=== PATIENT | male | born 1965 | race Caucasian/White ===

== ENCOUNTER 2016-05-21 12:25 | Emergency (ER) | payer OTHER ==
[~2016-05-21] VITALS: Ht 165.1 cm; Wt 66.9 kg
[2016-05-21 12:29] VITALS: TEMP 36.5; Ht 165.1 cm; Wt 66.9 kg
[2016-05-21] MEDS ORDERED: MoRPHine SULFATE 10 MG/ML CARP/VIAL IV STA (12:53)
[2016-05-21] MEDS ORDERED: ONDANSETRON INJ 2 MG/ML 2 ML VIAL ONE (13:28)
[2016-05-21] MEDS ORDERED: XYLOCAINE 1%/SOD BICARB 20 ML VIAL INFIL ONE (13:31)
--- NOTE | 2016-05-21 13:31 | DIAGNOSTIC IMAGING REPORT ---
LEFT HAND 3 VIEWS HISTORY: LACERATION LEFT HAND COMPARISON: None. FINDINGS: Comminuted, slightly angulated fracture at the midshaft of the proximal phalanx of the thumb. There is also an oblique nondisplaced fracture at the ulnar base of the distal phalanx of the thumb. Comminuted fracture at the mid to distal middle phalanx of the index finger with amputation of the distal phalanx. Comminuted fractures at the distal phalanx of the middle finger with associated soft tissue laceration. Multiple punctate densities within the soft tissues of the index finger and middle finger may be due to tiny bony fragments. IMPRESSION: Fractures within the left thumb, index finger, and middle finger as described above including amputation of the distal phalanx of the left index finger. Electronically signed by: Rosalio Elizabeth M.D. 05/21/2016 1:29 PM Dictated Date/Time: 05/21/2016 1:27 PM
[2016-05-21] MEDS ORDERED: IBUP-1050 PO (13:41)
[2016-05-21] MEDS ORDERED: CEFAZOLIN 2000 MG/60 ML D5W IV SCH (14:30)
[2016-05-21 14:39] LABS: BASO % 0.3 %; BASO ABS # 0.02 K/uL (0-0.2); COMPLETE YES; EOS % 2.9 %; IG% 0.1 %; LYMPH % 32.5 %; LYMPH ABS # 2.34 K/uL (1.2-3.4); MEAN CELL VOLUME 85.1 fL (80-100); MEAN CORPUSCULAR HEMOGLOBIN 29.7 pg (25-34); MEAN CORPUSCULAR HGB CONC 34.9 g/dl (32-36); MEAN PLATELET VOLUME 10.4 fL (7.4-10.4); MONO % 4.7 %; NEUT % 59.5 %; PLATELET COUNT 308 K/uL (130-400); RED BLOOD COUNT 5.05 M/uL (4.7-6.1); WHITE BLOOD COUNT 7.21 K/uL (4.8-10.8)
[2016-05-21 14:49] LABS: BUN/CREATININE RATIO 20.4 (10-20); CALCIUM 8.6 mg/dl (8.5-10.1); CREATININE 1.2 mg/dl (0.60-1.40); POTASSIUM 3.4 mmol/L (3.5-5.1)
[2016-05-21] MEDS ORDERED: MoRPHine SULFATE 4 MG/ML 1 ML CARP\\VIAL ONE (15:31)
[2016-05-21] MEDS ORDERED: CEPH500C PO (16:38)
[2016-05-21] MEDS ORDERED: TRAM-10 PO (16:38)
--- NOTE | 2016-05-21 16:47 | EMERGENCY ROOM VISIT NOTE ---
History Report prepared by Shannanibbisi: Gurpreet Deutsch Under the Supervision of: Dr. Get Serrano D.O. First contact with patient: 12:41 Chief Complaint: LACERATION/CUT (SUT/DERMABOND) Stated Complaint: LACERATION-POSSIBLE AVULSION History of Present Illness The patient is a 50 year old male who presents to the Emergency Room with complaints of persistent finger pain that started about 25 minutes ago. The patient was working around his house when he slipped in mud and cut his hand on his saw when his safety board slipped. The patient also complains of thumb pain and a headache. He has old stitches in his left thumb that were supposed to be taken out last week. He denies hitting his head. Pt denies change in vision, fevers, chest pain, shortness of breath, diarrhea, pain with urination, and melena. Source of History: patient Onset: 25 minutes ago Position: finger(s) (left) Timing: other (persistent) Associated Symptoms: + headache, No SOB, No chest pain, No diarrhea, No fevers, No melena, No urinary symptoms Note: Other associated symptoms: left thumb pain Denies: vision changes Review of Systems See HPI for pertinent positives & negatives. A total of 10 systems reviewed and were otherwise negative. Past Medical & Surgical Medical Problems: (1) No pertinent past medical history Family History No pertinent family history Social History Smoking Status: Current Every Day Smoker Housing Status: lives alone Occupation Status: unemployed Current/Historical Medications Scheduled Cephalexin Monohydrate (Keflex), 500 MG PO TID Tramadol (Ultram), 1 TABS PO Q6H Scheduled PRN Ibuprofen (Advil), 200-400 MG PO Q6H PRN for Pain Allergies Coded Allergies: Acetaminophen (Unverified Allergy, Intermediate, NAUSEA AND DIZZY, 05/21/16 ) Hydrocodone (Unverified Allergy, Intermediate, NAUSEA AND DIZZINESS, ) Oxycodone (Unverified Allergy, Intermediate, NAUSEA AND DIZZY, 05/21/16) Physical Exam Vital Signs Date Time Temp Pulse Resp B/P Pulse Ox O2 Delivery O2 Flow Rate FiO2 05/21/16 16:52 99 20 153/109 96 Room Air 05/21/16 16:35 110 05/21/16 15:31 109 20 173/108 95 Room Air 05/21/16 13:59 81 21 147/97 92 4/10/17 13:05 106 14 176/98 92 Room Air 05/21/16 12:29 36.5 110 20 155/87 97 Room Air Physical Exam GENERAL: moderate distress, holding left hand. EYE EXAM: normal conjunctiva OROPHARYNX: no exudate, no erythema, lips, buccal mucosa, and tongue normal and mucous membranes are moist LUNGS: Clear to auscultation. Normal chest wall mechanics HEART: no murmurs, S1 normal and S2 normal CHEST: old midline incision ABDOMEN: abdomen soft, non-tender, normo-active bowel sounds, no masses, no rebound or guarding. BACK: Back is symmetrical on inspection and there is no deformity, no midline tenderness, no CVA tenderness. SKIN: no rashes and no bruising UPPER EXTREMITIES: 3 sutures intact to palmar aspect of left thumb, significant pain with palpation of MTP through DIP, no obvious bruising. 2nd digit of left hand - exposed bone amputated in-between DIP and PIP. Stellate laceration tracking back over PIP. 3rd digit - laceration on palmar aspect medially and laterally 3cm in total, no venous oozing, flexor digitorum profundus and flexor digitorum superficialis intact. Stellate laceration. LOWER EXTREMITIES: No pitting edema. NEURO EXAM: Normal sensorium, Medical Decision & Procedures ER Provider Diagnostic Interpretation: Radiology results as stated below per my review and the radiologist's interpretation: LEFT HAND 3 VIEWS HISTORY: LACERATION LEFT HAND COMPARISON: None. FINDINGS: Comminuted, slightly angulated fracture at the midshaft of the proximal phalanx of the thumb. There is also an oblique nondisplaced fracture at the ulnar base of the distal phalanx of the thumb. Comminuted fracture at the mid to distal middle phalanx of the index finger with amputation of the distal phalanx. Comminuted fractures at the distal phalanx of the middle finger with associated soft tissue laceration. Multiple punctate densities within the soft tissues of the index finger and middle finger may be due to tiny bony fragments. IMPRESSION: Fractures within the left thumb, index finger, and middle finger as described above including amputation of the distal phalanx of the left index finger. Electronically signed by: Rosalio Elizabeth M.D. 05/21/2016 1:29 PM Dictated Date/Time: 05/21/2016 1:27 PM Laboratory Results 4/10/17 12:40 Red Blood Count 5.05, Mean Corpuscular Volume 85.1, Mean Corpuscular Hemoglobin 29.7, Mean Corpuscular Hemoglobin Concent 34.9, Mean Platelet Volume 10.4, Neutrophils (%) (Auto) 59.5, Lymphocytes (%) (Auto) 32.5, Monocytes (%) (Auto) 4.7, Eosinophils (%) (Auto) 2.9, Basophils (%) (Auto) 0.3, Neutrophils # (Auto) 4.29, Lymphocytes # (Auto) 2.34, Monocytes # (Auto) 0.34, Eosinophils # (Auto) 0.21, Basophils # (Auto) 0.02 05/21/16 12:40 Test 05/21/16 12:40 White Blood Count 7.21 K/uL (4.8-10.8) Red Blood Count 5.05 M/uL (4.7-6.1) Hemoglobin 15.0 g/dL (14.0-18.0) Hematocrit 43.0 % (42-52) Mean Corpuscular Volume 85.1 fL (80-100) Mean Corpuscular Hemoglobin 29.7 pg (25-34) Mean Corpuscular Hemoglobin Concent 34.9 g/dl (32-36) Platelet Count 308 K/uL (130-400) Mean Platelet Volume 10.4 fL (7.4-10.4) Neutrophils (%) (Auto) 59.5 % Lymphocytes (%) (Auto) 32.5 % Monocytes (%) (Auto) 4.7 % Eosinophils (%) (Auto) 2.9 % Basophils (%) (Auto) 0.3 % Neutrophils # (Auto) 4.29 K/uL (1.4-6.5) Lymphocytes # (Auto) 2.34 K/uL (1.2-3.4) Monocytes # (Auto) 0.34 K/uL (0.11-0.59) Eosinophils # (Auto) 0.21 K/uL (0-0.5) Basophils # (Auto) 0.02 K/uL (0-0.2) RDW Standard Deviation 42.1 fL (36.4-46.3) RDW Coefficient of Variation 13.6 % (11.5-14.5) Immature Granulocyte % (Auto) 0.1 % Immature Granulocyte # (Auto) 0.01 K/uL (0.00-0.02) Anion Gap 9.0 mmol/L (3-11) Est Creatinine Clear Calc Drug Dose 64.1 ml/min Estimated GFR () 81.2 Estimated GFR (Non- 70.1 BUN/Creatinine Ratio 20.4 (10-20) Calcium Level 8.6 mg/dl (8.5-10.1) Laboratory results per my review. Medications Administered Medications (Trade) Dose Ordered Sig/Felicia Route Start Time Stop Time Status Last Admin Dose Admin Morphine Sulfate (MoRPHine SULFATE INJ) 6 mg NOW STAT IV 05/21/16 12:53 05/21/16 12:54 DC 05/21/16 13:08 6 MG Ondansetron HCl 4 mg 4 mg STK-MED ONCE .ROUTE 05/21/16 13:28 05/21/16 13:29 DC 05/21/16 13:28 4 MG Cefazolin Sodium (Ancef 2000mg/60 ml D5W) 60 ml @ 100 mls/hr PREOP IV 05/21/16 14:30 05/21/16 18:00 DC 05/21/16 15:24 100 MLS/HR Morphine Sulfate (MoRPHine SULFATE INJ) 4 mg STK-MED ONCE .ROUTE 05/21/16 15:31 05/21/16 15:32 DC 05/21/16 15:28 4 MG ECG Indication: chest pain Rate (beats per minute): 92 Rhythm: normal sinus Findings: no ectopy, other (normal axis) ED Course ED COURSE: Vital signs were reviewed and showed hypertensive and tachycardic. The patients medical record was reviewed The above diagnostic studies were performed and reviewed. ED treatments and interventions as stated above. 1246: The patient was evaluated in room A10. A complete history and physical examination was performed. 1253: Ordered Morphine Sulfate 6 mg IV. 1328: Ordered Zofran Inj 4 mg .ROUTE. 1331: Ordered Lidocaine HCl 20 ml INFIL. 1354: At this time, I reevaluated the patient and he complained of chest pain. He states that this is normal for him when he is anxious. 1404: At this time, I numbed the patient's hand. 1423: At this time, I discussed the patient's case [facility] and he agreed to discuss the case with the on-call attending. 1429: At this time, Jaxson Gallardo PA-C - [facility] called me back and he agreed to come and see the patient in the ED. 1436: Upon reevaluation, the patient is resting more comfortably.I discussed my findings with the patient and he understands and agrees with the treatment plan. I updated the patient that he was waiting for an ortho consult. 1505: At this time, the patient was signed out to Dr. Ford - Emergency Medicine due to change of shifts. 1522: At this time, I discussed the patient's case at bedside with the ortho consult. 1630: Repeat EKG was negative. Chest pain resolved within 1-2 minutes. Recommended admission with chest x-ray and troponin the patient declined. Risk and benefits were explained. 1645: The patient appeared well at the time of discharge. Medical Decision Differential diagnoses include major intracranial, cervical, spinal, thoracic, abdominal, pelvic and neurologic injury. Fracture, contusion, sprain, strain, laceration, abrasions included as well. Patient is a 50-year-old male who presents the ER for amputation along with multiple fractures of the first second third digit of his left hand. He is right-hand dominant. He was seen and evaluated by orthopedics at bedside. Lacerations were repaired by orthopedics. His tetanus was up-to-date previously as he had a laceration of his left thumb last week. Patient complained of a sharp stabbing chest pain on 2 separate occasions while in the ER and it resolved very quickly within 1-2 minutes. There was no radiation or shortness of breath. He notes that this feels exactly his previous anxiety attacks which he gets regularly. His significant other/girlfriend confirms this. It is unchanged in anyway. EKGs 2 were obtained and were unremarkable. Last EKG was sinus tach and unchanged from his previous. I did recommend troponin, x-ray and observation due to his cardiac history but he declined. He was given a dose of Ancef in the ER. CBC and BMP were unremarkable. He was slightly tachycardic on the ER and I favor this is secondary to anxiety and pain. He will follow up with orthopedics in the office tomorrow. He was given Ultram and Keflex as he is allergic to oxycodone, Percocet and hydrocodone. Discussed with Pt concerning signs and symptoms to watch out for. Pt was instructed to follow up with their PCP and discussed with the patient their option to return to the ED at anytime for persistent or worsening symptoms. The appropriate anticipatory guidance and out-patient management, including indications for return to the emergency department, were explained at length to the patient and understood. Consults Time Called: 1352 Consulting Physician: Jaxson Hayes PA-C - [facility] Returned Call: [phone] At this time, I discussed the patient's case with Jaxson Hayes PA-C and he agreed to discuss the case with the on-call attending. Additional Consults: Time Called: 1352 Consulted Physician: Jaxson Hayes PA-C - [facility] Returned Call: [phone] Additional Comments: At this time, Jaxson Gallardo PA-C called me back and he agreed to come and see the patient in the ED. Impression Primary Impression: Amputation finger Additional Impressions: Multiple fractures of fingers Multiple lacerations Chest pain Scribe Attestation The scribe's documentation has been prepared under my direction and personally reviewed by me in its entirety. I confirm that the note above accurately reflects all work, treatment, procedures, and medical decision making performed by me. Departure Information Dispostion Still a Patient (patient was signed out to Dr. Ford due to change of shift ) Prescriptions Tramadol (Ultram) 50 Mg Tab 1 TABS PO Q6H, #15 TAB Prov: Get Serrano, DO 05/21/16 Cephalexin Monohydrate (Keflex) 500 Mg Cap 500 MG PO TID for 10 Days, #30 CAP Prov: Get Serrano, DO 05/21/16 Referrals No Doctor, Assigned (PCP) Problem Qualifiers Primary Impression: Amputation finger Encounter type: initial encounter Qualified Codes: S68.119A - Complete traumatic metacarpophalangeal amputation of unspecified finger, initial encounter Additional Impressions: Multiple fractures of fingers Encounter type: initial encounter Fracture type: open Qualified Codes: S62.609B - Fracture of unspecified phalanx of unspecified finger, initial encounter for open fracture Chest pain Chest pain type: unspecified Qualified Codes: R07.9 - Chest pain, unspecified
[2016-05-21 16:52] VITALS: BP 153/109; PULSE 99; O2SAT 96
--- NOTE | 2016-05-21 19:26 | ORTHOPEDIC CONSULTATION REPORT ---
DATE OF CONSULTATION: 05/21/2016 REASON FOR CONSULT: Table saw injury to the first, second and third fingers. HISTORY OF PRESENT ILLNESS: The patient is a 50-year-old white male who states that he was using a table saw today and one of the boards got away from him and he ended up putting his hand into the saw. He had immediate deformity to the second and third left fingers and also pain in his left thumb. He had much bleeding by his description and he was brought in to the Emergency Room by his landlord. He was seen by the staff at that time and we were asked to come down to see the patient for further evaluation. I reviewed the x-rays with Dr. Fernandez and discussed the case and was found that after reviewing the films, Dr. Fernandez asked me to thoroughly clean the hand and suture the current skin lacerations and tears and put him in a bulky hand dressing and splint for the left thumb and have him see him in the office in the following morning for definitive care. PHYSICAL EXAMINATION: On entering the room, the patient is awake and alert and having some pain that is returning to the fingers after having a block placed in his fingers by Dr. Serrano. A 1% lidocaine was used at the time and after discussing with the patient, he was given 4 more mg of IV morphine and once the morphine was given, the area just distal to the MP joints of the second and third fingers were cleansed with alcohol swabs and Betadine swabs and let to dry. At that point in time, using a 25-gauge needle, a 1% lidocaine was then reintroduced into around the webspaces of the second and third fingers to achieve an adequate block. This was let to set and the dressings were then removed. He had multiple lacerations over the distal tips of the second and third fingers. The second finger being the worst with noting some skin loss and also a small piece of bone sticking out from what was left of the second distal phalanx. At that point in time after achieving the block, the hands were cleansed with sterile 4 x 4's, and then copious irrigation of sterile saline and also Betadine solution was performed on the 2 fingers. Two small bleeders were identified in the distal tip of the second finger and a portable battery operated cautery device was used to stop the flow of these successfully. He still had some general ooze from the overall injuries. After copious irrigation and exploration with the use of Adson forceps and scissors, what was left of the distal phalanx was then removed and any other nonviable tissue was debrided. This was also then performed on the third distal fingertip with noted less tissue loss. He did not have any active bleeders in the third distal finger. After the explorations and cleansing of the areas, 4-0 nylon suture was then used to reapproximate some of the skin lacerations to provide pressure and also temporary closure of the wounds. Once this was done, the hand was then cleansed and Xeroform gauze was placed on both second and third fingertips and a bulky dressing of 4 x 4s, and Kerlix and Emeka wrap was applied. The left thumb was notably tender due to fracture and a small splint was applied to the left thumb and then incorporated in Kerlix and an Emeka wrap. The patient tolerated the procedure well. ASSESSMENT: Multiple lacerations to the second and third left distal fingertips due to a band saw, also noted of fractures of the distal phalanx of the second and third left fingers, fracture of the proximal phalanx of the left thumb with noted previous sutures in the fingertip of the left thumb from previous injury. PLAN: I discussed the plan with the patient and with Dr. Serrano. The patient will need to continue to keep the hand elevated at all times at rest and he may use a small ice pack over the left thumb and the fingers as much as possible. He will be given antibiotics likely Keflex and p.o. pain meds and is to follow up, specifically with Dr. Fernandez tomorrow morning at his office. The patient understood and I discussed the case with his girlfriend who was with him and what his needs were going to be. Of note, the patient had been given morphine just prior to my exam giving him another digital block of which he became very anxious which nursing stated that this happened with his previous morphine dose 2 hours prior to my arrival. After having the dressing put on the hand as well, the patient was stating that he felt somewhat anxious and had a little chest discomfort. He did not describe it as crushing chest pain and states that he has had it before and has a history of anxiety. This was discussed with Dr. Serrano who knew of his history and plans will be to get an EKG prior to his discharge. ESTEFANIA
[2016-05-22] MEDS ORDERED: CEFAZOLIN IV 2,000 MG/60 ML D5W IV ONE (06:00)
--- NOTE | 2016-05-23 07:40 | EDITING REQUIRED CODING QUERY ---
LENGTH OF LACERATION To promote full compliance with coding requirements relating to patient care, physician participation is requested in all cases of home care music therapist uncertainty. Please assist us with the question(s) below: Please document the length of the (3rd DIGIT) laceration. Please type the length in cm within the parenthesis () below. (3rd DIGIT LEFT HAND) laceration is ( please see orthos documentation as they repaired the laceration ) cm. I did document in my MDM but that was just an estimate Thank you Taisha Alberts
== END 2016-05-21 17:28 | disposition home or self-care (01) ==
LOC: C.EDB 12:32 → C.EDA 17:28
DX: S68.119A Complete traumatic metacarpophalangeal amputation of unspecified finger, initial encounter (principal); S62.609B Fracture of unspecified phalanx of unspecified finger, initial encounter for open fracture; R07.9 Chest pain, unspecified; W29.3XXA Contact with powered garden and outdoor hand tools and machinery, initial encounter; S68.111A Complete traumatic metacarpophalangeal amputation of left index finger, initial encounter; S62.213A Bennett's fracture, unspecified hand, initial encounter for closed fracture; S62.633A Displaced fracture of distal phalanx of left middle finger, initial encounter for closed fracture; S61.012A Laceration without foreign body of left thumb without damage to nail, initial encounter; S62.512A Displaced fracture of proximal phalanx of left thumb, initial encounter for closed fracture; F17.200 Nicotine dependence, unspecified, uncomplicated